=== PATIENT | female | born 1990 | race Caucasian/White ===

== ENCOUNTER 2017-06-03 12:51 | Emergency (ER) | payer OTHER, SELFPAY | END 2017-06-03 13:47 | disposition home or self-care (01) | PROVIDERS: Emergency Provider Nurse Practitioner; Visit Provider Nurse Practitioner | DX: H66.93 Otitis media, unspecified, bilateral (principal); E78.5 Hyperlipidemia, unspecified | CPT/HCPCS: 99201 ==

== ENCOUNTER → 2019-01-02 16:20 | Outpatient (CLI) | payer OTHER, SELFPAY ==
[2019-01-02 18:25] LABS: Thyroid Stimulating Hormone 3.59 uIU/ml (0.358-3.740)
[2019-01-02 20:24] LABS: Basophils % 0.3 % (0.1-2.0); Eosinophils # 0.1 K/mm3 (0.0-0.4); Eosinophils % 1.5 % (0.1-12.0); Hematocrit 38.7 % (37.0-47.0); Hemoglobin 12.5 g/dL (12.2-16.2); Lymphocytes # 2.8 K/mm3 (0.7-4.5); Lymphocytes % 30.5 % (10-50); Mean Corpuscular HGB Conc 32.2 g/dL (31.8-35.4); Mean Corpuscular Hemoglobin 26.2 pg (27.0-31.2); Mean Corpuscular Volume 81.5 fl (81-99); Mean Platelet Volume 8.2 fl (7.4-10.4); Monocytes # 0.4 K/mm3 (0.1-1.0); Neutrophils % 63.7 % (37.0-80.0); Platelet Count 375 K/mm3 (142-424); Red Blood Count 4.75 M/mm3 (4.20-5.40); Red Cell Distribution Width 14.2 % (11.5-17.5); White Blood Count 9.4 K/mm3 (4.8-10.8)
[2019-01-05 08:17] LABS: HIV Screen 4th Generation wRfx Non Reactive (Non Reactive); Hepatitis B Surface Antigen Negative (Negative); Hepatitis C Antibody <0.1 s/co ratio (0.0-0.9); Rapid Plasma Reagin Ab Titer Non Reactive (NonRea<1:1)
== END ==
PROVIDERS: Visit Provider Nurse Practitioner Obstetrics & Gynecology
DX: Z34.90 Encounter for supervision of normal pregnancy, unspecified, unspecified trimester (principal)
CPT/HCPCS: 36415; 84443; 85025; 86592; 86703; 86762; 86850; 87340; 87380; G0432

== ENCOUNTER → 2019-01-05 15:17 | Outpatient (CLI) | payer OTHER, SELFPAY ==
--- NOTE | 2019-01-05 15:19 | US_ITS ---
US OB transvaginal CLINICAL INDICATION: ITS.REASON: US OB Dates ORDERING PHYSICIAN: Michele Orozco MD PATIENT AGE: 28 years Comparison: None FINDINGS: Transvaginal images shows a single intrauterine gestational sac with pole measuring 1.48 cm in crown rump length corresponding to gestational age of 7 weeks and 6 days. Yolk sac is 0.49 cm. There is no cul-de-sac fluid. Right ovary measures 2.5 x 1.3 x 2.0 cm with normal blood flow. Left ovary is 2.5 x 1.4 x 2.4 cm with normal blood flow. There are no bilateral adnexal lesions. IMPRESSION: Intrauterine fetus as described above of approximate 7 weeks and 6 days gestational age with heart rate of 164 bpm.
== END ==
PROVIDERS: Visit Provider Nurse Practitioner Obstetrics & Gynecology
DX: O26.841 Uterine size-date discrepancy, first trimester (principal)
CPT/HCPCS: 76817

== ENCOUNTER → 2019-03-20 13:18 | Outpatient (CLI) | payer OTHER, SELFPAY ==
--- NOTE | 2019-03-20 13:19 | US_ITS ---
PROCEDURE: US OB /MATERNAL DETAIL CLINICAL INDICATION: US OB Complete COMPARISON: OBTV US OB transvaginal from 01/05/2019 FINDINGS: Single viable intrauterine gestation. Cephalic position. Placenta: Posteriorplacenta grade 1. There is average amount fluid. The cervix appears satisfactory. Closed and measuring 4 cm in length. Complete survey performed and was unremarkable on the submitted images as in PACS. No discrete anomalies identified on survey imaging by technologist. Active fetus. Three-vessel cord with satisfactory umbilical cord insertion. 4- chamber heart noted. Survey of brain & ventricles Unremarkable. Face and neck survey unremarkable. Diaphragm and chest views unremarkable. Abdomen: Both kidneys noted and unremarkable. Stomach noted and satisfactory. Spine: Survey of the spine satisfactory with no anomalies identified nor imaged. Both arms and legs noted. Amniotic Fluid: Adequate. Maternal adnexa: No significant findings. Measurements: Average ultrasound age 18 weeks 4 days. Gestational Age 18 weeks 3 days Estimated due date by ultrasound age 0308/17/2019. Estimated weight 231.2 gramsgrams. BPD = 19 weeks 0 days OFD = 19 weeks 2 days HC = 18 weeks 3 days AC = 18 weeks 3 days FL = 18 weeks 1 day Growth Percentile= 35 percent% Heart Rate = 152 bpm Cerebellum = 18 weeks 5 days Humerus = 19 weeks 2 days HC/AC is 1.21 CI is 0.78 FL/BPD is 0.62 FL/AC is 0.21 IMPRESSION: There is a single live fetus which is in cephalic presentation. Average ultrasound age is 18 weeks 4 days. All parameters correlate with no obvious anomalies. Please see above for detail. Dictated by: Micah Jarrett MD 03/20/2019 17:22 Electronically signed by Micah Jarrett MD in [place] 03/20/2019 17:22
== END ==
PROVIDERS: Visit Provider Nurse Practitioner Obstetrics & Gynecology
DX: Z36.0 Encounter for antenatal screening for chromosomal anomalies (principal)
CPT/HCPCS: 76811

== ENCOUNTER → 2019-05-19 07:20 | Outpatient (CLI) | payer OTHER, SELFPAY ==
[2019-05-19 09:13] LABS: Glucose,Fasting 81 mg/dL (60-105)
== END ==
PROVIDERS: Visit Provider Nurse Practitioner Obstetrics & Gynecology
DX: Z34.90 Encounter for supervision of normal pregnancy, unspecified, unspecified trimester (principal)
CPT/HCPCS: 36415; 82951

== ENCOUNTER → 2019-05-20 07:26 | Outpatient (CLI) | payer OTHER, SELFPAY ==
[2019-05-20 08:17] LABS: Glucose,Fasting 86 mg/dL (60-105)
[2019-05-20 09:13] LABS: Glucose 1 Hour 152 mg/dL (74-106)
== END ==
PROVIDERS: Visit Provider Nurse Practitioner Obstetrics & Gynecology
DX: Z34.90 Encounter for supervision of normal pregnancy, unspecified, unspecified trimester (principal)
CPT/HCPCS: 36415; 82951

== ENCOUNTER → 2019-05-24 07:02 | Outpatient (CLI) | payer OTHER, SELFPAY ==
[2019-05-24 07:52] LABS: Glucose,Fasting 86 mg/dL (60-105)
[2019-05-24 09:37] LABS: Glucose 1 Hour 148 mg/dL (74-106)
[2019-05-24 09:57] LABS: Glucose 2 Hour 118 mg/dL (74-106)
[2019-05-24 11:31] LABS: Glucose 3 Hour 99 mg/dL (74-106)
== END ==
PROVIDERS: Visit Provider Nurse Practitioner Obstetrics & Gynecology
DX: R73.09 Other abnormal glucose (principal); Z34.90 Encounter for supervision of normal pregnancy, unspecified, unspecified trimester
CPT/HCPCS: 36415; 82951

== ENCOUNTER → 2019-07-18 16:59 | Outpatient (CLI) | payer OTHER, SELFPAY | LOC: LAB 17:01 → LAB.DROPOF 17:06 | PROVIDERS: Visit Provider Nurse Practitioner Obstetrics & Gynecology | DX: Z34.90 Encounter for supervision of normal pregnancy, unspecified, unspecified trimester (principal) | CPT/HCPCS: 86403 ==

== ENCOUNTER 2019-08-14 05:26 | Inpatient (IN) ==
[2019-08-14 06:16] LABS: Microscopic, Urine URINE MICROSCOPIC (MICROSCOPIC)
[2019-08-14 06:18] LABS: Basophils % 0.4 % (0.1-2.0); Eosinophils # 0.1 K/mm3 (0.0-0.4); Eosinophils % 1.6 % (0.1-12.0); Hemoglobin 8.9 g/dL (12.2-16.2); Lymphocytes # 2.3 K/mm3 (0.7-4.5); Lymphocytes % 29.5 % (10-50); Mean Corpuscular HGB Conc 31.8 g/dL (31.8-35.4); Mean Corpuscular Volume 75.6 fl (81-99); Mean Platelet Volume 8.5 fl (7.4-10.4); Monocytes # 0.3 K/mm3 (0.1-1.0); Monocytes % 4.1 % (1.7-9.3); Neutrophils % 64.5 % (37.0-80.0); Platelet Count 309 K/mm3 (142-424); White Blood Count 7.7 K/mm3 (4.8-10.8)
[2019-08-14 06:51] LABS: Appearance,Urine CLOUDY (Clear); Bilirubin,Urine Negative (Negative); Blood, Urine Negative (Negative); Color,Urine YELLOW (Yellow); Glucose,Urine (UA) Negative (Negative); Ketones,Urine Negative (Negative); Leukocyte Esterase,Urine 3+ (Negative); PH,Urine 6.5 (5.0-8.5); Protein,Urine TRACE (Negative); Specific Gravity, Urine 1.025 (1.005-1.030)
[2019-08-14 07:02] LABS: Barbiturates Screen,Urine Negative ng/ml (<200); Benzodiazepines Screen,Urine Negative ng/ml (<200)
[2019-08-14 07:03] LABS: Amphetamine/Metha Screen,Urine Negative ng/ml (<1000)
[2019-08-14 07:04] LABS: Cannabinoid Screen,Urine Negative ng/ml (<50); Cocaine Screen,Urine Negative ng/ml (<300)
[2019-08-14 07:05] LABS: Methadone Screen,Urine Negative ng/ml (<300)
[2019-08-14 07:06] LABS: Opiate Screen,Urine Negative ng/ml (<300)
[2019-08-14 07:07] LABS: Phencyclidine Screen,Urine Negative ng/ml (<25)
[2019-08-14 07:24] LABS: Bacteria,Urine 3+ /lpf; RBC,Urine Occasional #/hpf (0-3); Squamous Epithelial Cell,Urine 20-50 #/hpf (0-5)
--- NOTE | 2019-08-14 08:19 | Progress Note ---
Labor Note - Subjective: Date: 08/14/19 Time: 07:20 regular contraction - Objective: NST:: Reactive Contractions:: every 2-3 minutes Cervical Dilation:: 4 Effacement:: 75% Station: -1 Membranes: artificially ruptured - Fetus: Monitoring?: Yes monitoring type:: External Comment:: I inserted an IUPC as well as a scalp clip. - Assessment: Labor progressing?: Yes Cephalopelvic disproportion?: No Patient Problems: All Active Problems Bronchitis (Acute) (Acute) - Plan: Anesthesia for epidural?: Yes Continue to labor down?: Yes Plan for ?: No Continue to monitor?: Yes Start pushing?: No
--- NOTE | 2019-08-14 08:21 | History & Physical Report ---
OB - H&P: HPI Antepartum - History of Present Illness Chief complaint: Term History of present illness: She is a 28-year-old 2 para 1 who is 39+ weeks gestational age. She has been having some pressure and occasional contractions. As result of that we have elected to augment her labor. - History of Present Criteria for establishing EDC:: LMP confirmed by 1st trimester US care: good care Ultrasounds: normal 1st trimester US, normal mid trimester US Obstetrical complications: none Medical complications: none [facility] History I have reviewed the patient's past medical history: Yes Medical History: Reports:: Migraine Denies:: Cancer, Diabetes Mellitus Type 1, Diabetes Mellitus Type 2, Hypertension, MRSA *Have you ever received a pneumonia vaccine?: No *Have you received a flu vaccine this season?: Yes Other Surgeries: Yes: No Previous Surgery, Other. No: Amputation: No Fractures: No - *Social History Smoking Status: Never smoker Alcohol Intake: never Substance Use Type: denies use *Occupational Status:: employed *Travel in the last 8 weeks: None Family Hx:: Cancer, Heart Attack, Hyperlipidemia, Hypertension, Thyroid Disorder Para: 1 Review of Systems - Review of Systems Review of systems:: pertinent systems reviewed and negative unless documented b nCrypted Clouds Home Medications Medication Instructions Recorded Confirmed Type prenat.vits,angela,[id number] 1 tab PO DAILY 01/02/19 08/14/19 History Promethazine HCl 12.5 mg PO Q6HP PRN 04/17/19 08/14/19 History RX: Ferrous Sulfate 325 mg PO DAILY 04/17/19 08/14/19 History Allergies Allergy/AdvReac Type Severity Reaction Status Date / Time No Known Allergies Allergy Verified 08/02/19 15:53 OB - H&P: Exam - Physical Exam Vital signs: Temp Pulse Resp BP Pulse Ox 97.7 F 103 H 18 142/79 H 98 08/14/19 07:08 08/14/19 07:08 08/14/19 07:08 08/14/19 07:08 08/14/19 07:08 - Constitutional no acute distress - Routine HEENT Exam Head: Present: normocephalic Eye: Present: EOMI, PERRL ENT: Present: mucous membranes moist - Routine Neck Exam Present: supple, full ROM - Routine Respiratory Exam Absent: accessory muscle use (good air entry bilaterally), respiratory distress, wheezes, crackles - Routine Cardiovascular Exam Present: RRR. Absent: murmur - Routine Abdominal Exam Present: soft, normoactive bowel sounds. Absent: tenderness, distended, guarding - Routine Rectal Exam Patient deferred: visual exam, digital exam - Routine Exam Patient deferred: external exam, groin exam, perineal exam - Routine Extremities Exam Present: full ROM. Absent: cyanosis, edema - Routine Skin Exam Present: intact. Absent: cyanosis - Routine Neurological Exam Present: alert, oriented X3 - Routine Psychiatric Exam Present: normal affect OB - Results - Labs Labs: Short CBC 08/14/19 Range/Units 06:10 WBC 7.7 (4.8-10.8) K/mm3 Hgb 8.9 L (12.2-16.2) g/dL Hct 28.0 L (37.0-47.0) % Plt Count 309 (142-424) K/mm3 Urine 08/14/19 Range/Units 05:40 Urine Color Yellow (Yellow) Urine Appearance Cloudy (Clear) Urine pH 6.5 (5.0-8.5) Ur Specific [place] 1.025 (1.005-1.030) Urine Protein Trace (Negative) Urine Glucose (UA) Negative (Negative) OB - A/P Antepartum (1) Normal delivery Current visit: Yes Status: Acute - Additional Plan Planning to breastfeed?: Yes Plan: induction Additional Information:: She is here for augmentation of labor. She is term and she has had a previous vaginal delivery.
--- NOTE | 2019-08-14 10:04 | Progress Note ---
[facility] Anesthesia Checklist - Patient Identification Patient Identification: Arm Band, Verbal (Name & ) - Structural Data Admitted From: Inpatient (OB) Planned Operative Procedure/s: labor epidural Consent for Planned Operative Procedure(s) Verified: Yes Verified Documents: Surgical Consent, History and Physical - Chart Verification Results Verified: CBC - Additional verifications Patient : Yes Anesthesia Reactions: No - Airway Assessment C-Spine Mobility Assessed: Yes TMJ Mobility Assessed: Yes Dentition: Good Dentition - Neurological Assessment Level of Consciousness: Awake, Alert, Appropriate, Follows Commands Hx Seizures: No Numbness or tingling in extremities: No - Anesthesia Plan Anesthesia Risk discussed: Yes Anesthesia Plan: Verified ASA Class: II Anesthesia Type: Epidural [facility] History I have reviewed the patient's past medical history: Yes Medical History: Reports:: Gastroesophageal Reflux Disease(GERD), Migraine Denies:: Cancer, Diabetes Mellitus Type 1, Diabetes Mellitus Type 2, Hypertension, MRSA *Have you ever received a pneumonia vaccine?: No *Have you received a flu vaccine this season?: Yes Comment:: obesity Anesthesia experience/problems:: no complications Other Surgeries: Yes: No Previous Surgery, Other. No: Amputation: No Fractures: No - *Social History Smoking Status: Never smoker Alcohol Intake: never Substance Use Type: denies use *Occupational Status:: employed *Travel in the last 8 weeks: None Family Hx:: Cancer, Heart Attack, Hyperlipidemia, Hypertension, Thyroid Disorder Para: 1
--- NOTE | 2019-08-14 11:30 | Progress Note ---
Labor Note - Subjective: Date: 08/14/19 Time: 11:29 regular contraction - Objective: NST:: Reactive Contractions:: every 2-3 minutes Cervical Dilation:: 5 Effacement:: 90% Station: -1 Membranes: artificially ruptured - Fetus: Monitoring?: Yes monitoring type:: Internal and External - Assessment: Labor progressing?: Yes Cephalopelvic disproportion?: No Patient Problems: All Active Problems Normal delivery (Acute) Bronchitis (Acute) (Acute) - Plan: Anesthesia for epidural?: Yes Continue to labor down?: Yes Plan for ?: No Continue to monitor?: Yes Start pushing?: No
--- NOTE | 2019-08-14 16:38 | Procedure Note ---
- Delivery Note Delivery Date:: 08/14/19 Delivery Time:: 16:24 Anesthesia Type: Epidural Was labor medically induced?: Yes Induction method: per pitocin protocol Infant delivered prior to 39 weeks?: No Gender: Female at 1 minute: 7 at 5 minutes: 8 Delivery Procedure:: She is a 28-year-old 2 para 1 at 39 weeks gestational age. She was having pressure and occasional contractions we elected to augment her labor at term. She was started on IV oxytocin had her membranes ruptured. Under labor epidural she progressed to full dilation and delivered spontaneously a liveborn female child at 4:24 PM in the afternoon of August 14, 2019. On deliver the head the anterior shoulder then rapidly delivered followed by the rest the 's body atraumatically. We let the cord to continue to pulsate for approximately 1 minute. The baby was vigorous. The oropharynx and nasopharynx were bulb suction. The cord was then doubly clamped and cut and the infant was then placed on the mother's abdomen for further care. The nurse assigned Apgars of 7 at 1 minute and 8 at 5 minutes. We then obtained cord blood as well as cord pH. She received IV oxytocin using gentle traction on the cord and countertraction on the fundus I was able to easily deliver the placenta intact at 4:28 PM. Had a normal three-vessel cord. There were no perineal or vaginal lacerations. She has a be positive blood, she is rubella immune and was group B streptococcus negative. She plans to breast-feed. Her asphalt patcher is Dr. Marin. Estimated blood loss was approximately 400 cc. Placental Delivery Description: Spontaneous
[2019-08-15 06:57] LABS: Hematocrit 26.8 % (37.0-47.0); Hemoglobin 8.5 g/dL (12.2-16.2)
--- NOTE | 2019-08-15 08:14 | Progress Note ---
Internal Medicine - PN: Subj *Date: 08/15/19 *Time: 08:13 Interval history: She is doing very well this morning. She is eating and drinking and ambulating. She is breast-feeding. Her lochia is normal. Exam Vital signs and Labs for Last 24 Hours: Temp Pulse Resp BP Pulse Ox 97.7 F 94 H 18 136/72 98 08/14/19 07:08 08/14/19 12:00 08/14/19 07:08 08/14/19 12:00 08/14/19 07:08 Laboratory Results - last 24 hr 08/14/19 16:37: Cord ABG pH 7.26 L 08/15/19 06:20: Hgb 8.5 L, Hct 26.8 L I & O for Last 24 hours: Intake & Output 08/12/19 08/13/19 08/14/19 08/15/19 11:59 11:59 11:59 11:59 Weight 230 lb Microbiology Reports for the Last 24 Hours: Microbiology 08/14/19 05:40 Urine,Clean Catch Urine Culture - Final Multiple organisms, suggests contamination. - Constitutional no acute distress - *Routine HEENT Exam Head: Present: normocephalic Eye: Present: EOMI, PERRL ENT: Present: mucous membranes moist Assessment and Plan (1) Normal delivery Current visit: Yes Status: Acute Category: Medical Code(s): O80 - Encounter for full-term uncomplicated delivery - Assessment and plan all Dx Assessment and Plan for all problems:: She continues to do well. We will see her again later this afternoon. We will plan to send her home tomorrow.
--- NOTE | 2019-08-16 08:24 | Discharge Summary ---
General - General Admission date:: 08/14/19 Discharge date: 08/16/19 HPI HPI: She is a 28-year-old 2 now para 2 who is 39+ weeks gestational age. She was having some pressure and was feeling uncomfortable. As result of that we elected to deliver her. Hospital Course Hospital Course: She was started on IV oxytocin and had her membranes ruptured. Under labor epidural progressed to full dilation and delivered spontaneously a liveborn female child at 4:24 PM in the afternoon of August 14, 2019. The baby weighed 8 pounds 8 ounces and was 19-1/2 inches long. She had Apgars of 7 at 1 minute and 8 at 5 minutes. She has done well and has remained afebrile throughout her hospitalization. She is eating and drinking and ambulating. She is breast- feeding. She has AB positive blood, she is rubella immune and was group B streptococcus negative. Her rod buster is Dr. Marin. She is discharged home to follow-up with me in approximately 2 weeks time. She will continue with her vitamins and iron. She was given the usual instructions with respect to limiting her activity, driving and sexual activity. Rhogam Administration: Not Indicated Objective Vital signs: Temp Pulse Resp BP Pulse Ox 98.0 F 106 H 16 133/76 99 08/15/19 15:50 08/15/19 15:50 08/15/19 15:50 08/15/19 15:50 08/15/19 15:50 no acute distress - *Routine HEENT Exam Head: Present: normocephalic Eye: Present: EOMI, PERRL ENT: Present: mucous membranes moist DS: Diagnosis - Discharge Diagnosis (1) Normal delivery Status: Acute Discharge Plan - Patient Discharge Instructions ACTIVITY: No heavy lifting DIET: continue same diet Additional Instructions: No heavy lifting, no strenuous activity, nothing in the vagina for 6 weeks. Patient Instructions: DI for Hemorrhage, Depression, Hemorrhage, DI for Labor and Delivery, Vaginal , [facility] Post Discharge Instructions - Follow up Plan Follow up with: Michele Orozco MD [Staff Physician] - Disposition: Home, Self-[facility] Medications: Home Medications Medication Instructions Recorded Confirmed Type prenat.vits,angela,[id number] 1 tab PO DAILY 01/02/19 08/14/19 History Ferrous Sulfate 325 mg PO DAILY 04/17/19 08/14/19 History Promethazine HCl 12.5 mg PO Q6HP PRN 04/17/19 08/14/19 History Prescriptions/Medication Reconciliation: Continued prenat.vits,angela,[id number] 1 tab PO DAILY Ferrous Sulfate 325 mg PO DAILY Promethazine HCl 12.5 mg PO Q6HP PRN PRN Reason: NAUSEA/VOMITING - Problem Reconciliation Problems Reviewed?: Yes
[2019-08-16 08:41] VITALS: BP 127/84
== END 2019-08-16 09:45 | disposition home or self-care (01) | DRG 807 ==
LOC: OB 05:26
PROVIDERS: ADMIT Nurse Practitioner Obstetrics & Gynecology; ATTEND Nurse Practitioner Obstetrics & Gynecology
CPT/HCPCS: C1758

== ENCOUNTER 2020-03-21 09:41 | Emergency (ER) | payer OTHER, SELFPAY ==
[2020-03-21 09:49] VITALS: BP 137/88; PULSE 75; RESP 21; TEMP 36.8; O2SAT 97; BMI 36.3
--- NOTE | 2020-03-21 09:57 | HMH.EDUTC ---
[facility] [place] Disposition Clinical Impression: Poison lamar dermatitis Disposition: Home, Self-Care Condition on Discharge: Good Instructions: Poison Lamar, Poison [place], Poison [place], Summertime Rashes: Poison [place], [place], and [place], Methylprednisolone Additional Instructions: Start Medrol Dose pack tomorrow Over the counter Benadryl may help with itching Over the counter Calamine lotion may help to dry the rash Cool compresses may help with itching and irritation Return if needed Prescriptions: methylPREDNISolone [Medrol 4mg tab] 4 mg PO DIRECTED #21 tab Transmission Status: Pending to [facility] Referrals: PCP,No [Primary Care Provider] - As needed Time of Disposition: 10:10 Medical Decision Making - Richard Inquiry Pt receiving controlled substance: No Richard was queried for this patient: No Vital Signs: 03/21/20 09:49 Temperature 98.3 F Temperature Source Oral Pulse Rate [Right Brachial] 75 Respiratory Rate 21 Blood Pressure [Right Arm] 137/88 Blood Pressure Mean [Right Arm] 104 Blood Pressure Source [Right Arm] Automatic Cuff Blood Pressure Position [Right Arm] Sitting 02 Sat by Pulse Oximetry 97 Oxygen Delivery Method Room Air Orders (Tests/Meds): ED MEDICATIONS Discontinued Medications Generic Name Dose Route Start Last Admin Trade Name Freq PRN Reason Stop Dose Admin Methylprednisolone Sodium Succinate 125 mg 03/21/20 09:55 Methylprednisolone Sod Succ 125mg Vial IM 03/21/20 09:56 ONCE ONE [facility] [place] HPI - General Stated complaint: poison lamar Time Seen by Provider: 03/21/20 09:57 Mode of Arrival: Ambulatory Source of Information: Patient Limitations: No Limitations Description of Symptoms (Recalled from Triage Doc. by RN): PATIENT C/O ITCHY, BUMPY RASH TO BUE AND NECK SINCE WEDNESDAY HEENT Symptoms (Recalled from RN notes): No Resp Symptoms (Recalled from RN notes): No Skin Symptoms (Recalled from RN notes): Yes MS Symptoms (Recalled from RN notes): No Functional Status (Recalled from RN notes): WNL - History of Present Illness Provider Complaint: Paitent states that she noticed she was breaking out with bumpy like rash on her hands, bilateral arms neck and now the side of her face State that she thinks it is poison lamar and has been using calamine lotion but it is continuing to spread - Related Data Previous Rx's Medication Instructions Recorded methylPREDNISolone [Medrol 4mg 4 mg PO DIRECTED #21 tab 03/21/20 tab] Allergies Allergy/AdvReac Type Severity Reaction Status Date / Time No Known Allergies Allergy Verified 10/09/19 09:56 - Worker's Comp Is this a Worker's Comp case?: No [facility] History - Hepatitis A Screen Drug use history?: No High risk sexual behaviors?: No History of sexually transmitted infection?: No Currently employed?: No Childcare worker?: No Do you have indoor plumbing?: Yes Do you have electricity?: Yes Attestation statement:: This patient has been screened for Hepatitis A risk factors. I have reviewed the patient's past medical history: Yes Medical History: Reports:: Gastroesophageal Reflux Disease(GERD), Migraine Denies:: Cancer, Diabetes Mellitus Type 1, Diabetes Mellitus Type 2, Hypertension, MRSA, Seizures Comment: obesity Other Surgeries: Yes: No Previous Surgery, Other. No: Amputation: No Fractures: No - Social History Smoking Status: Never smoker Alcohol Intake: never Alcohol Intake Frequency:: other Substance Use Type: denies use Occupational Status: other Family Hx:: Cancer, Heart Attack, Hyperlipidemia, Hypertension, Thyroid Disorder ROS Obtained: Yes All systems reviewed & no additional complaints, Yes Systems reviewed as appropriate & no additional complaints - Constitutional Constitutional: Reports system reviewed and no additional complaints, except as docu - Cardiovascular Cardiovascular: Reports system reviewed and no additional complaints, except as docu - Respiratory Resp
[2020-03-21 10:11] VITALS: BP 137/88; PULSE 75; RESP 21; TEMP 36.8; O2SAT 97
== END 2020-03-21 10:18 | disposition home or self-care (01) ==
PROVIDERS: Emergency Provider Nurse Practitioner
DX: L23.7 Allergic contact dermatitis due to plants, except food (principal); K21.9 Gastro-esophageal reflux disease without esophagitis; G43.709 Chronic migraine without aura, not intractable, without status migrainosus
CPT/HCPCS: 96372; 99201

== ENCOUNTER → 2020-03-25 17:14 | Outpatient (CLI) | payer OTHER, SELFPAY ==
[2020-03-25 17:21] VITALS: BMI 27.4
== END ==
PROVIDERS: Visit Provider Nurse Practitioner
DX: L23.7 Allergic contact dermatitis due to plants, except food (principal); L50.9 Urticaria, unspecified

== ENCOUNTER 2020-03-31 17:36 | Emergency (ER) | payer OTHER, SELFPAY ==
[2020-03-31 17:45] VITALS: BP 153/97; PULSE 88; RESP 18; TEMP 36.7; O2SAT 100; BMI 36.2
--- NOTE | 2020-03-31 18:08 | HMH.EDUTC ---
[facility] [place] Disposition Clinical Impression: Urticaria Disposition: Home, Self-Care Condition on Discharge: Good Instructions: Poison Lamar, Poison [place], Poison [place], DI for Hives Additional Instructions: Finish Steriods as prescribed Call Dermatology tomorrow and try to get appointment AB Return if needed Straight to ER if any life threatening symptoms Over the counter Benadryl to help with itching, over the counter Claritian and Zantac (Pepcid) may help with rash, swelling and itching A referral was sent to Dr Diaz office for allergy testing and follow up Referrals: PCP,No [Primary Care Provider] - As needed Aubrey Coker MD [Referring] - (Call office tomorrow for appointment as soon as possible) Juan Miguel Diaz [Referring] - As needed (Call office for appointment for allergy testing) Forms: Work/School Release Time of Disposition: 18:56 Medical Decision Making - Richard Inquiry Pt receiving controlled substance: No Richard was queried for this patient: No Vital Signs: 03/31/20 17:45 Temperature 98.1 F Temperature Source Oral Pulse Rate [Radial] 88 Respiratory Rate 18 Blood Pressure [Right Arm] 153/97 H Blood Pressure Mean [Right Arm] 115 Blood Pressure Source [Right Arm] Automatic Cuff Blood Pressure Position [Right Arm] Sitting 02 Sat by Pulse Oximetry 100 Oxygen Delivery Method Room Air Orders (Tests/Meds): ED MEDICATIONS Discontinued Medications Generic Name Dose Route Start Last Admin Trade Name Karina PRN Reason Stop Dose Admin Famotidine 20 mg 03/31/20 18:45 03/31/20 18:52 Famotidine 20mg Tablet PO 03/31/20 18:46 20 mg ONCE ONE Administration Loratadine 10 mg 03/31/20 18:45 03/31/20 18:52 Loratadine 10mg Tablet PO 03/31/20 18:46 10 mg ONCE ONE Administration Medical Decision Narrative: Discussed with patient the importance to follow up with Dermatology and Asthma and Allergy for further treatment and evaluation of urticaria Poison lamar on hands appears improved but has been having recurrent urticaria that will improve then come back and has been on multiple rounds of Prednisone but still having symptoms Patient informed that poison lamar dermatitis can be hard to treat and require multiple weeks worth of steriods and treatment and she would need to follow up with Dermatology for further evaluation and treatment and Follow up with Dr Diaz for allergy testing to make sure that she may not be having a reaction to something that she is continuously exposing herself to Recommended over the counter benadryl, zantac, and clariatin and call Derm and Allergy for appointment Pateint rod SOMargret denies trouble swallowing [facility] HPI - General Stated complaint: rash,eye swollen Time Seen by Provider: 03/31/20 18:08 Mode of Arrival: Ambulatory Source of Information: Patient Limitations: No Limitations Description of Symptoms (Recalled from Triage Doc. by RN): rash all over body, facial swelling HEENT Symptoms (Recalled from RN notes): No Resp Symptoms (Recalled from RN notes): No Skin Symptoms (Recalled from RN notes): Yes MS Symptoms (Recalled from RN notes): No Functional Status (Recalled from RN notes): wnl - History of Present Illness Provider Complaint: Patient states that she started out with poison lamar rash about 2 weeks ago and was seen and given steriod shot and oral steriods States that she finished that pack and was still having rash and welps and was given second round of steriods States that she finished steriods yesterday and today she is still broke out in welps all over her body and having swelling in both eyes and not sure what else to do States that she has not taken any benadryl today - Related Data Previous Rx's Medication Instructions Recorded methylPREDNISolone [Medrol 4mg 4 mg PO DIRECTED #21 tab 03/21/20 tab] Allergies Allergy/AdvReac Type Severity Reaction Status Date / Time No Known Allergies Allergy Verified 10/09/19 09:56 - Worker
[2020-03-31 19:16] VITALS: BP 153/97; PULSE 88; RESP 18; TEMP 36.7; O2SAT 100
== END 2020-03-31 19:17 | disposition home or self-care (01) ==
PROVIDERS: Emergency Provider Nurse Practitioner
DX: L50.0 Allergic urticaria (principal); K21.9 Gastro-esophageal reflux disease without esophagitis; G43.709 Chronic migraine without aura, not intractable, without status migrainosus
CPT/HCPCS: 99201

== ENCOUNTER → 2020-09-17 17:26 | Outpatient (CLI) | payer OTHER, SELFPAY ==
[2020-09-17 17:50] LABS: Basophils % 0.3 % (0.1-2.0); Eosinophils # 0.2 K/mm3 (0.0-0.4); Eosinophils % 2.6 % (0.1-12.0); Hematocrit 36.5 % (37.0-47.0); Hemoglobin 11.6 g/dL (12.2-16.2); Lymphocytes # 2.6 K/mm3 (0.7-4.5); Lymphocytes % 33.3 % (10-50); Mean Corpuscular HGB Conc 31.9 g/dL (31.8-35.4); Mean Corpuscular Hemoglobin 25.4 pg (27.0-31.2); Mean Corpuscular Volume 79.7 fl (81-99); Mean Platelet Volume 8.2 fl (7.4-10.4); Monocytes # 0.3 K/mm3 (0.1-1.0); Monocytes % 3.5 % (1.7-9.3); Neutrophils # 4.6 K/mm3 (1.8-7.8); Neutrophils % 60.2 % (37.0-80.0); Platelet Count 371 K/mm3 (142-424); Red Blood Count 4.58 M/mm3 (4.20-5.40); Red Cell Distribution Width 14.2 % (11.5-17.5); White Blood Count 7.7 K/mm3 (4.8-10.8)
[2020-09-17 18:05] LABS: Alanine Aminotransferase 13 U/L (12-78); Albumin Level 4.3 g/dl (3.5-5.0); Albumin/Globulin Ratio 1.6 (1.1-1.8); Alkaline Phosphatase 94 U/L (38-126); Anion Gap 13.1 mEq/L (5-15); Aspartate Amino Transferase 23 U/L (14-36); Bilirubin,Total 0.3 mg/dl (0.2-1.3); Blood Urea Nitrogen 13 mg/dl (7-17); Calcium 9.5 mg/dl (8.4-10.2); Carbon Dioxide 24 mmol/L (22.0-30.0); Chloride 105 mmol/L (98-107); Estimated Glomerular Filt Rate 84 ml/min (>60); GFR (African American) 101 ML/MIN (>60); Globulin 2.7 g/dL (1.3-3.2); Glucose 102 mg/dl (74-100); HDL Cholesterol 53 mg/dl (40-60); Potassium 4.1 mmoL/L (3.5-5.1); Sodium 138 mmol/L (136-145); Triglycerides 89 mg/dl (30-150); VLDL Cholesterol 18 mg/dL (0-40)
[2020-09-17 18:16] LABS: Direct LDL Cholesterol 285.15 mg/dL (100-129)
[2020-09-17 18:18] LABS: Chol/HDL Ratio 7.3 (1-3.5); Cholesterol 386 mg/dl (140-200)
[2020-09-17 18:21] LABS: 25-OH Vitamin D, Total 34.9 ng/mL (30-100)
[2020-09-17 18:34] LABS: Thyroid Stimulating Hormone 0.09 uIU/mL (0.465-4.68)
== END ==
PROVIDERS: Visit Provider Physician Assistant
DX: L50.9 Urticaria, unspecified (principal); Z68.38 Body mass index [BMI] 38.0-38.9, adult
CPT/HCPCS: 80053; 80061; 82306; 84443; 85025

== ENCOUNTER → 2020-09-25 15:20 | Outpatient (CLI) | payer OTHER, SELFPAY ==
[2020-09-25 17:17] LABS: Thyroid Stimulating Hormone 0.25 uIU/mL (0.465-4.68)
== END ==
PROVIDERS: Visit Provider Physician Assistant
DX: R79.89 Other specified abnormal findings of blood chemistry (principal)
CPT/HCPCS: 36415; 84443

== ENCOUNTER 2020-10-28 16:26 | Emergency (ER) | payer OTHER, SELFPAY ==
[2020-10-28 17:07] VITALS: BP 149/92; PULSE 71; RESP 19; TEMP 37; O2SAT 100; BMI 32.9
[2020-10-28 17:25] VITALS: BP 149/92; PULSE 71; RESP 19; TEMP 37; O2SAT 100
--- NOTE | 2020-10-28 17:40 | HMH.EDUTC ---
[facility] [place] Impression: Conjunctivitis Qualifiers: Conjunctivitis type: acute Acute conjunctivitis type: unspecified Laterality: right Qualified Code(s): H10.31 - Unspecified acute conjunctivitis, right eye Disposition: Home, Self-Care Condition on Discharge: Good Instructions: How to Instill Eye Drops, Conjunctivitis, DI for Conjunctivitis Additional Instructions: Use the eye drops as directed. Follow up with your regular doctor. Follow up with an eye doctor. Strict hand washing in the household, because conjunctivitis is very contagious. GO TO THE ER FOR ANY WORSENING SYMPTOMS Prescriptions: Sulfacetamide Sodium [Bleph-10] 1 drp EYE-RIGHT Q3H 7 Days #1 bottle Transmission Status: Received by [id number] Referrals: Aruna Parikh PA [Primary Care Provider] - Forms: Work/School Release Medical Decision Making - Medical Records Medical records reviewed: No: I reviewed the patient's medical records. - Richard Inquiry Pt receiving controlled substance: No Vital Signs: 10/28/20 17:07 10/28/20 17:25 Temperature 98.6 F 98.6 F Temperature Source Oral Pulse Rate 71 Pulse Rate [Left] 71 Respiratory Rate 19 19 Blood Pressure 149/92 H Blood Pressure [Right Arm] 149/92 H Blood Pressure Mean [Right Arm] 111 02 Sat by Pulse Oximetry 100 [facility] [place] - General Stated complaint: possible pink eye Time Seen by Provider: 10/28/20 17:42 Mode of Arrival: Ambulatory Source of Information: Patient Limitations: No Limitations Description of Symptoms (Recalled from Triage Doc. by RN): Pt c/o right eye redness. HEENT Symptoms (Recalled from RN notes): Yes Resp Symptoms (Recalled from RN notes): No Skin Symptoms (Recalled from RN notes): No MS Symptoms (Recalled from RN notes): No Functional Status (Recalled from RN notes): wnl - History of Present Illness Provider Complaint: She states that she woke up this morning with her right eye matted together. Since then she has had excessive tearing and matting of the eye. She denies any eye pain. She states that her vision is essentially normal in the eye. She denies any known injury. She denies any foreign body in the eye. - Related Data Previous Rx's Medication Instructions Recorded hydroxyzine pamoate 25 mg capsule 25 mg PO QHS #90 cap 09/17/20 levocetirizine 5 mg tablet 5 mg PO DAILY #90 tab 09/17/20 atorvastatin 10 mg tablet 10 mg PO HS #30 tab 09/25/20 Sulfacetamide Sodium [Bleph-10] 1 drp EYE-RIGHT Q3H 7 Days #1 10/28/20 bottle Allergies Allergy/AdvReac Type Severity Reaction Status Date / Time No Known Allergies Allergy Verified 10/28/20 17:20 - Worker's Comp Is this a Worker's Comp case?: No [facility] History - Hepatitis A Screen Drug use history?: No High risk sexual behaviors?: No History of sexually transmitted infection?: No Currently employed?: No Childcare worker?: Yes Do you have indoor plumbing?: Yes Do you have electricity?: Yes Attestation statement:: This patient has been screened for Hepatitis A risk factors. I have reviewed the patient's past medical history: Yes Medical History: Reports:: Gastroesophageal Reflux Disease(GERD), Migraine Denies:: Cancer, Diabetes Mellitus Type 1, Diabetes Mellitus Type 2, Hypertension, MRSA, Seizures Comment: obesity Other Surgeries: Yes: No Previous Surgery, Other. No: Amputation: No Fractures: No - Social History Smoking Status: Never smoker Alcohol Intake: never Alcohol Intake Frequency:: holidays/special occasions only Substance Use Type: denies use Occupational Status: other Housing: house Family Hx:: Cancer, Heart Attack, Hyperlipidemia, Hypertension, Thyroid Disorder ROS Obtained: Yes All systems reviewed & no additional complaints - Constitutional Constitutional: Denies chills, Denies fever(s) - Eyes Eyes: Reports as per HPI - ENT Ears, Nose, Mouth, and Throat: Denies dizziness, Denies otalgia, Denies sore throat
== END 2020-10-28 18:09 | disposition home or self-care (01) ==
PROVIDERS: Emergency Provider Nurse Practitioner Family; PCP Physician Assistant
DX: H10.31 Unspecified acute conjunctivitis, right eye (principal)
CPT/HCPCS: 99202; G0463

== ENCOUNTER → 2020-10-29 10:52 | Outpatient (POV) | payer OTHER, SELFPAY ==
[2020-10-29 12:30] LABS: T4 (Thyroxine) 8.2 ug/dl (5.53-11.0)
[2020-10-29 12:44] LABS: Thyroid Stimulating Hormone 0.88 uIU/mL (0.465-4.68)
[2020-10-30 20:20] LABS: Triiodothyronine (T3) Total 101 ng/dL (71-180)
== END ==
PROVIDERS: Visit Provider Otolaryngology
DX: H10.9 Unspecified conjunctivitis (principal)
CPT/HCPCS: 36415; 84436; 84443; 84480

== ENCOUNTER → 2020-12-18 15:16 | Outpatient (CLI) | payer OTHER, SELFPAY ==
--- NOTE | 2020-12-18 | XR_ITS ---
PROCEDURE: XR FOOT WT BEARING RT 3V CLINICAL INDICATION: foot pain COMPARISON: No exams were available for comparison FINDINGS: No fracture or dislocation. No lytic or blastic change. There is normal mineralization. The joint spaces are well-preserved. No significant degenerative/arthritic changes. No erosive changes evident. Other findings:Bony hypertrophy along the anterior and proximal aspect of the navicular IMPRESSION: Mild bony hypertrophy of the navicular otherwise negative Dictated by: Micah Jarrett MD 12/18/2020 17:14 Micah Jarrett MD in [place] 12/18/2020 17:14
--- NOTE | 2020-12-18 15:19 | XR_ITS ---
PROCEDURE: XR FOOT WT BEARING LT 3V CLINICAL INDICATION: foot pain COMPARISON: No exams were available for comparison FINDINGS: No fracture or dislocation. No lytic or blastic change. There is normal mineralization. The joint spaces are well-preserved. No significant degenerative/arthritic changes. No erosive changes evident. Other findings:None. IMPRESSION: Negative left foot. Dictated by: Micah Jarrett MD 12/18/2020 17:15 Micah Jarrett MD in [place] 12/18/2020 17:15
== END ==
PROVIDERS: PCP Physician Assistant; Visit Provider Podiatrist
DX: M79.672 Pain in left foot (principal); M79.671 Pain in right foot
CPT/HCPCS: 73630